=== PATIENT | male | born 1960 | race African-American/Black ===

== ENCOUNTER 2025-04-03 11:33 | Emergency (ER) | payer SELFPAY | END 2025-04-03 12:54 | disposition home or self-care (01) | LOC: ERS 11:33 | DX: L02.212 Cutaneous abscess of back [any part, except buttock and flank] (principal); I10 Essential (primary) hypertension; J44.9 Chronic obstructive pulmonary disease, unspecified; Z87.891 Personal history of nicotine dependence | CPT/HCPCS: 99282 ==

== ENCOUNTER 2025-04-11 08:06 | Emergency (ER) | payer SELFPAY ==
[2025-04-11] MEDS ORDERED: Ketorolac Tromethamine 30 MG (1 mL) VIAL ONE (08:37)
== END 2025-04-11 08:52 ==
LOC: ERS 08:06
DX: L02.212 Cutaneous abscess of back [any part, except buttock and flank] (principal); J44.9 Chronic obstructive pulmonary disease, unspecified; I10 Essential (primary) hypertension; Z87.891 Personal history of nicotine dependence
CPT/HCPCS: 96372; 99282; J1885

== ENCOUNTER 2025-04-25 08:49 | Emergency (ER) | payer SELFPAY ==
[2025-04-25 09:53] LABS: #Basophils 0.06 10x3/uL (0.0-0.2); #Eosinophils 0.22 10x3/uL (0.0-0.7); #Monocytes 0.91 10x3/uL (0.11-0.59); #Neutrophils 3.01 10x3/uL (1.40-6.50); %Basophils 0.8 % (0.0-1.0); %Eosinophils 2.8 % (0.0-10.0); %Lymphocytes 46.4 % (21.0-51.0); %Monocytes 11.6 % (0.0-10.0); %Neutrophils 38.3 % (42.0-75.0); Hematocrit 45.5 % (42.0-52.0); Hemoglobin 14.7 g/dL (14.0-18.0); Mean Corpuscular Hemoglobin 28.2 pg (27.0-31.0); Mean Corpuscular Volume 87.2 fL (78.0-98.0); Platelet Count 361 10x3/uL (130-400); Red Blood Cell (RBC) Count 5.22 mill/uL (4.70-6.10); White Blood Cell (WBC) Count 7.86 10x3/uL (4.8-10.8)
[2025-04-25 10:11] LABS: ALT (SGPT) 21 U/L (Less than 45); AST (SGOT) 21 U/L (11-34); Albumin 3.9 g/dL (3.1-4.5); Alkaline Phosphatase 84 U/L (40-110); Anion Gap 15 mmol/L (10-20); BUN (Urea Nitrogen) 16 mg/dL (8.4-25.7); Bilirubin, Total 0.7 mg/dL (0.3-1.2); Calc. Creatinine Clearance 0 mL/min (70-130); Calcium 9.4 mg/dL (7.8-10.44); Carbon Dioxide 27 mmol/L (23-31); Chloride 102 mmol/L (98-107); Globulin 3.9 g/dL (2.4-3.5); Glucose 117 mg/dL (80-115); Potassium 4.0 mmol/L (3.5-5.1); Sodium 140 mmol/L (136-145)
[2025-04-25] MEDS ORDERED: Bacitracin 1 PK ONE (12:20)
== END 2025-04-25 12:44 | disposition home or self-care (01) ==
LOC: ERS 08:49
DX: L02.413 Cutaneous abscess of right upper limb (principal); J44.9 Chronic obstructive pulmonary disease, unspecified; I10 Essential (primary) hypertension
CPT/HCPCS: 10060; 80053; 83605; 85025; 87070; 87205

== ENCOUNTER 2025-05-01 13:24 | Emergency (ER) | payer SELFPAY | END 2025-05-01 14:15 | disposition home or self-care (01) | LOC: ERS 13:24 | DX: Z48.00 Encounter for change or removal of nonsurgical wound dressing (principal); I10 Essential (primary) hypertension; E78.5 Hyperlipidemia, unspecified; J44.9 Chronic obstructive pulmonary disease, unspecified | CPT/HCPCS: 99282 ==